=== PATIENT | female | born 1960 | race Caucasian/White ===

== ENCOUNTER → 2017-06-08 | Outpatient (CLI) | payer BC | END | disposition home or self-care (01) | LOC: YCFC.O 09:34 | PROVIDERS: ATTEND Anesthesiology Pain Medicine | DX: Z79.891 Long term (current) use of opiate analgesic (principal) ==

== ENCOUNTER 2020-01-18 15:22 | Emergency (ER) | payer BC, OTHER ==
[2020-01-18] MEDS ORDERED: TETANUS,DIPHTHERIA,PERTUSSIS 1 EA SYG IM ONE (15:31)
--- NOTE | 2020-01-18 15:35 | ED.PDOC ---
History of Present Illness - General Stated Complaint: finger laceration Time Seen by Provider: 01/18/20 15:24 Source: patient, RN notes reviewed, Vital Signs reviewed Exam Limitations: no limitations - History of Present Illness Initial Comments: Pt is a 59 yo female that presents to ED for right small finger laceration. States 20 minutes [employer] she cut the finger on a piece of metal while renovating a house. Had minimal bleeding initially that has now resolved. States her last tetanus was > 10 years ago. Denies other injuries. Review of Systems - Review of Systems Constitutional: Denies: chills, fever EENTM: States: no symptoms reported Respiratory: Denies: cough, short of breath, wheezing Cardiology: Denies: chest pain, palpitations, syncope Gastrointestinal/Abdominal: States: no symptoms reported Musculoskeletal: Denies: joint pain, neck pain Skin: States: see HPI Endocrine: States: no symptoms reported All other Systems: Reviewed and Negative Physical Exam - Physical Exam General Appearance: Alert, Comfortable, No apparent distress Eyes, Ears, Nose, Throat Exam: normal ENT inspection Neck: non-tender, supple Cardiovascular/Respiratory: regular rate, rhythm, normal breath sounds, no respiratory distress Abdominal Exam: non-tender Back Exam: no vertebral tenderness Shoulder Exam: normal inspection, non-tender, no evidence of injury, normal ROM Elbow/Forearm Exam: normal inspection, non-tender, no evidence of injury, normal ROM - There is a 1 cm superficial laceration to right small finger on the radial side at the DIP joint. No active bleeding. 5/5 flexion and extension strength to all digits. Cap refill < 2 seconds in all digits Neuro/Tendon: normal sensation, normal motor functions, no evidence tendon injury Mental Status: alert Progress - Progress Progress: 01/18/20 15:37 Pt has 1 cm laceration that is superficial to right small finger with no bleeding and no motor or sensory deficits. Tetanus updated. Wound irrigated and approximated with tissue adhesive. Wound care instructions given. Procedures - Laceration/Wound Repair Right Finger Wound Length (cm): 1 - right small finger Wound's Depth, Shape: superficial Wound Explored: clean Irrigated w/ Saline (cc's): 250 Betadine Prep?: No Wound Repaired With: dermabond Layer Closure?: No Departure - Departure Clinical Impression: Finger laceration Qualifiers: Encounter type: initial encounter Finger: little finger Damage to nail status: without damage Foreign body presence: without foreign body Laterality: right Qualified Code(s): S61.216A - Laceration without foreign body of right little finger without damage to nail, initial encounter Time of Disposition: 16:04 Disposition: Discharge to Home or Self Care Condition: Good Instructions: DI for Laceration Repair With Dermabond Diet: resume usual diet Activity: increase activity as tolerated, other - Keep wound clean and dry. No water on the area for 24 hours Referrals: THU BERNARD [Primary Care Provider] - 1-2 Weeks Additional Instructions: Keep wound clean and dry
[2020-01-18] MEDS ORDERED: POVIDONE IODINE 10 % 15 ML UD TOP ONE (15:50)
[2020-01-18 16:04] VITALS: BP 123/92; TEMP 98.1; O2SAT 96
== END 2020-01-18 16:22 | disposition home or self-care (01) ==
LOC: ER 15:22
DX: S61.216A Laceration without foreign body of right little finger without damage to nail, initial encounter (principal); W45.8XXA Other foreign body or object entering through skin, initial encounter; Y92.009 Unspecified place in unspecified non-institutional (private) residence as the place of occurrence of the external cause; Y93.H9 Activity, other involving exterior property and land maintenance, building and construction

== ENCOUNTER 2020-03-18 11:16 | Emergency (ER) | payer OTHER ==
[2020-03-18 11:31] VITALS: TEMP 97.2
[2020-03-18] MEDS ORDERED: ACETAMINOPHEN 500 MG TAB PO ONE (11:43)
[2020-03-18] MEDS ORDERED: KETOROLAC TROMETHAMINE INJ 30 MG/ML VIAL IM ONE (11:43)
[2020-03-18] MEDS ORDERED: METHOCARBAMOL 750 MG TAB PO ONE (11:43)
--- NOTE | 2020-03-18 11:46 | ED.PDOC ---
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 Reports had lifting patient and felt pain in lower back, radiating to left side but not to abdomen or leg. Denies history of back surgery. Denies fever, IVDU, saddle anesthesia, bowel/bladder incontinence/retention, or other symptoms at this time. Reports ambulatory since initial pain started. - History of Present Illness Allergies/Adverse Reactions: Allergies NO KNOWN ALLERGY Allergy (Verified 03/18/20 11:35) Home Medications: Ambulatory Orders Celecoxib [Celebrex] 01/18/20 Thyroid [[place] Thyroid] 30 mg PO 01/18/20 Methocarbamol 500 mg PO Q8HR PRN #20 tab 03/18/20 Methylprednisolone [Medrol Dose Prosper] 4 mg PO DAILY 6 Days #21 tab 03/18/20 Naproxen Sodium 500 mg PO BID PRN #20 tab 03/18/20 Review of Systems - Review of Systems Constitutional: States: no symptoms reported EENTM: States: no symptoms reported Respiratory: States: no symptoms reported Cardiology: States: no symptoms reported Gastrointestinal/Abdominal: States: no symptoms reported Musculoskeletal: States: back pain All other Systems: Reviewed and Negative Past Medical History (General) - Patient Medical History Hx Seizures: No Hx Stroke: No Hx Dementia: No Hx Asthma: No Hx of COPD: No Hx Cardiac Disorders: No Hx Congestive Heart Failure: No Hx Pacemaker: No Hx Hypertension: No Hx Thyroid Disease: Yes Hx Diabetes: No Hx Gastroesophageal Reflux: No Hx Renal Disease: No Hx Cancer: No Hx of HIV: No Hx Hepatitis C: No Hx MRSA: No Surgical History: appendectomy, cholecystectomy, Hysterectomy - Vaccination History Hx Tetanus, Diphtheria Vaccination: Yes Hx Influenza Vaccination: Yes Hx Pneumococcal Vaccination: No - Social History Hx Tobacco Use: Yes Hx Chewing Tobacco Use: No Hx Alcohol Use: No Hx Substance Use: No Hx Substance Use Treatment: No Hx Depression: No Feels Threatened In Home Enviroment: No Feels Threatened In a Relationship: No Hx Physical Abuse: No Hx Emotional Abuse: No Hx Suspected Abuse: No - Female History Patient is a Female of Child Bearing Age (10 -59 yrs old): Yes Patient : No - Triage Comment ED Triage Comment: The patient has noted pain in her lower back with numbness and tingling noted in her left leg. She had taken OTC medications at home but barone d no relief from the pain. Family Medical History - Family History Mother Family History: Unknown Physical Exam - Physical Exam General Appearance: Alert, No apparent distress, Well Developed, Well Nourished Neck Exam: non-tender, full range of motion, normal inspection Cardiovascular/Respiratory: regular rate, rhythm, no M/R/G, normal peripheral pulses Peripheral Pulses: dorsalis pedis,right: 2+, dorsalis pedis,left: 2+, posterior tibialis,right: 2+, posterior tibialis,left: 2+ Back Exam: normal inspection, no CVA tenderness, other - no midline c/t/l spine pain with palpation, no noted ecchymosis or edema Extremity Exam: no evidence of injury, normal range of motion, other - BLE: FROM, 2+ DP/PT pulses, intact light touch sensation, 2sec cap refill, 5/5strength, straight leg raise negative, ambulatory 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 Institutional screening protocol for coronavirus performed in triage. Nonfocal neuro examination, ambulatory, with preserved strength bilaterally today. History and exam does not appear consistent with acute infection or compression at this visit. Seems most likely consistent with muscle spasm or non-acute neuropathic pain. Does not clinically appear acutely dangerous pathology at this visit. ED warnings given, and outpatient f/u with PCP. Lance HAWLEY reviewed. Departure - Departure Clinical Impression: Low back pain Time of Disposition: 13:13 Disposition: Discharge to Home or Self Care Condition: Good Departure Forms: ED Discharge - Pt. Copy, Patient Portal Self Enrollment Instructions: DI for Low Back Pain, DI for Back Pain With Sciatica Diet: resume usual diet Activity: increase activity as tolerated Referrals: THU BERNARD [Primary Care Provider] - 1-2 Weeks Prescriptions: Methocarbamol 500 mg PO Q8HR PRN #20 tab PRN Reason: Muscle Spasms Methylprednisolone [Medrol Dose Prosper] 4 mg PO DAILY 6 Days #21 tab Naproxen Sodium 500 mg PO BID PRN #20 tab PRN Reason: Pain Home Medications: Ambulatory Orders Celecoxib [Celebrex] 01/18/20 Thyroid [[place] Thyroid] 30 mg PO 01/18/20 Methocarbamol 500 mg PO Q8HR PRN #20 tab 03/18/20 Methylprednisolone [Medrol Dose Prosper] 4 mg PO DAILY 6 Days #21 tab 03/18/20 Naproxen Sodium 500 mg PO BID PRN #20 tab 03/18/20
[2020-03-18 13:29] VITALS: BP 148/90; O2SAT 97
== END 2020-03-18 13:29 | disposition home or self-care (01) ==
LOC: ER 11:16
DX: M54.5 Low back pain (principal); F17.200 Nicotine dependence, unspecified, uncomplicated
CPT/HCPCS: 72100; 81001; J1885